=== PATIENT | male | born 1950 | race African-American/Black ===

== ENCOUNTER 2022-09-02 04:34 | Day surgery (SDC) | payer OTHER ==
[2022-08-30 16:17] VITALS: BMI 36.6
[2022-09-02 12:58] LABS: BASO % 1.1 % (0-2.0); EOS % 0.5 % (0-4.5); HEMATOCRIT 37.1 % (35.4-49); HEMOGLOBIN 12.3 GM/dL (11.7-16.9); MCH 27.4 pg (25.7-33.7); MCHC 33.2 g/dl (32.0-35.9); MEAN CELL VOLUME 82.4 fl (80-96); MEAN PLT VOLUME 8.1 fl (7.5-11.1); MONO % 4.2 % (3.8-10.2); NEUT % 71.2 % (42.8-82.8); PLATELET COUNT 245 10^3/uL (134-434); RDW 13.5 % (11.9-15.9); WHITE BLOOD COUNT 12.7 K/mm3 (4.0-10.0)
[2022-09-02 13:05] LABS: INR 1.05 (0.83-1.09); PROTHROMBIN TIME (PATIENT) 12.2 SEC (9.7-13.0)
[2022-09-02] MEDS ORDERED: FENTANYL CITRATE/PF 50 MCG/ML VIAL ONE (14:19)
[2022-09-02] MEDS ORDERED: SODIUM CHLORIDE 500 ML IV ONE (14:20)
[2022-09-02] MEDS ORDERED: FENTANYL CITRATE/PF 50 MCG/ML VIAL IVPUSH ONE (14:35)
[2022-09-02 15:23] VITALS: RESP 18
[2022-09-02 16:46] VITALS: BP 130/64; PULSE 62; TEMP 97.6
[2022-09-02 20:11] LABS: BF WBC & OTHER NUCLEATED CELLS NONE SEEN /mm3
[2022-09-04 16:13] LABS: BODY FLUID ALBUMIN 1.7 g/dL (Not Estab.)
== END 2022-09-02 17:17 | disposition home or self-care (01) ==
LOC: JRADIR 04:34
PROVIDERS: ATTEND Urology
PROC: 0T913ZX Drainage of Left Kidney, Percutaneous Approach, Diagnostic (ICD-10-PCS; principal; 2022-09-02)
DX: N28.1 Cyst of kidney, acquired (principal)
CPT/HCPCS: 36415; 50390; 74425-TC-FY; 82042; 82150; 82465; 82945; 82962; 83615; 83986; 84157; 84478; 85025; 85610; 87070; 87075; 87102; 87116; 87205; 87206; 87210; 88108; 88305-TC